=== PATIENT | male | born 1985 | race Caucasian/White ===

== ENCOUNTER 2020-08-08 10:32 | Emergency (ER) | payer OTHER, BC ==
[~2020-08-08] VITALS: Ht 185.4 cm; Wt 98.5 kg
[2020-08-08 10:36] VITALS: BP 139/86
--- NOTE | 2020-08-08 10:57 | NUR ---
PT FELL MOUNTAIN BIKING THIS AM. PT FELL AND HAS DEEP LACERATION TO RIGHT ELBOW, BLEEDING CONTROLLED. PT STATES IT DIDN'T BLEED TOO MUCH. PT WEARING HELMET, DENIES LOC. MULTIPLE SUPERFICIAL ABRASIONS TO RLE AND RUE.
[2020-08-08] MEDS ORDERED: DIPH,PERTUSS(ACELL),TET VAC/PF 0.5 ML IM-VACC ONE ×2 (11:00→11:01)
[2020-08-08] MEDS ORDERED: LIDOCAINE-MPF 1%, 5ML INFIL ONE (11:00)
[2020-08-08] MEDS ORDERED: LIDOCAINE-MPF 1%, 5ML ONE (11:01)
--- NOTE | 2020-08-08 11:01 | NUR ---
TECH AT BEDSIDE TO CLEAN LACERATION.
--- NOTE | 2020-08-08 11:07 | NUR ---
TDAP ADMIN PER MAR. HOLLAND PULLED FOR PROVIDER ADMIN
--- NOTE | 2020-08-08 12:08 | NUR ---
Patient given discharge instructions and prescription and they have confirmed that they understand the instructions. Patient ambulatory with steady gait. NAD, all questions answered appropriately, denies additional needs at this time. No personal belongings left in room after discharge.
== END 2020-08-08 12:48 | disposition home or self-care (01) ==
LOC: ED 11:59
DX: S51.021A Laceration with foreign body of right elbow, initial encounter (principal); W18.30XA Fall on same level, unspecified, initial encounter; Y93.89 Activity, other specified; Y92.410 Unspecified street and highway as the place of occurrence of the external cause; Y99.8 Other external cause status
CPT/HCPCS: 12031; 90471; 90715